=== PATIENT | female | born 1935 | race African-American/Black ===

== ENCOUNTER 2017-03-04 15:19 | Emergency (ER) | payer OTHER ==
[~2017-03-04] VITALS: Ht 167.6 cm; Wt 136.1 kg
[~2017-03-04 15:19] MED LIST: ACTOS 30 MG TAB30 MG PO; ACTOS 45 MG45 M1 PO; ACTOS 45 MG45 MG PO; ACYCLOVIR 800800 MG PO; ADULT LOW DOSE81 MG PO; AFRIN15 ML NASAL; ALAVERT10 MG PO; ALBUTEROL INHAL17 GM IH; ALTOPREV40 MG PO; ANALGESIC325 MG PO; ANTACID650 MG PO; APAP500; APAP500 PO; ARICEPT 5 MG TAB5 MG PO; ARICEPT10 MG PO; ARTIFICIAL TEA1 EAC1 OPHTHALMIC; ASPIRIN325; ASPIRIN325 PO; AUGMENTIN 875875 M1 PO; AVELOX400 MG PO; AZITHROMYCIN 2250 MG PO; BIOTENE MOIST44.3 ML PO; CALCIUM CARBON260 MG PO; CLARITIN10 MG PO; COLACE 100 MG100 MG; COLACE100 MG PO; COMPAZINE10 M1 PO; COMPAZINE10 MG PO; EMLA CREAM; EMLA CREAM5 GM; EXPECTORAN100 MG/5 M PO; EXPECTORANT200 M1 PO; FANATREX25 MG/1 ML; FENTANYL PA25 MCG/HR TRANSDERM; FEVERALL JR 32325 MG PO; FLOMAX PO; FUROSEMIDE 20 M20 MG PO; GABAPENTIN100 MG PO; GLIPIZIDE XL10 MG PO; GLUCAGEN1 M2 IM; GLUCOSE4 GM PO; GLUCOTROL5 MG PO; GRALISE600 MG PO; GUAIATUSSI100 MG/5 M PO; HUMALOG100 UNIT/1; HYDROCODON-ACE1 EACH; HYDROCODONE-AP1 EAC6 PO; IMDUR 30 MG TAB30 M1 PO; IMDUR 30 MG TAB30 MG PO; ISOSORBIDE; ISOSORBIDE DINI30 MG PO; KEFLEX500 MG PO; KETOROLAC 0.5% E5 ML OPHTHALMIC; LASIX 20 MG TAB20 MG PO; LASIX 40 MG TAB40 M1 GT; LIDOCAINE; LIDOCAINE/PRILOCAINE; LIPITOR10 MG PO; LOPRESSOR25; LOPRESSOR25 PO; LORTAB 5 MG/5001 TA1 PO; METOPROLOL 50 M50 M1 PO; MIDODRINE HCL 55 M1 PO; MIDODRINE HCL10 MG PO; MIDODRINE HCL2.5 M1 PO; MIRALAX17 GM PO; MIRALAX255 GM PO; MUCINEX TA600 MG/TA2 PO; NAPROSYN375 MG PO; NAPROSYN500 MG PO; NEPHROCAPS SOFT1 CAP; NEPHROCAPS SOFT1 CAP PO; NEPHROCAPS SOFTG1 MG PO; NEPRO CARB STE237 ML PO; NEURO-K50 MG PO; NEURONTIN 300300 M1; NEURONTIN 300300 M1 PO; NORCO 5-325 TA1 EACH PO; NOVOLIN R100 UNIT/3 IJ; NOVOLOG100 UNIT/1; OCEAN45 ML NS; OMEPRAZOLE20 M2 PO; ONDANSETRON HCL4 M2 PO; ONDANSETRON ODT4 MG PO; OXYCODONE HCL E10 MG PO; PHENERGAN-CODE120 ML PO; PHOSLO667 MG; PHOSLO667 MG PO; PLAVIX 75 MG TA75 MG PO; PRED FORTE 1% EY5 M1 OPHTHALMIC; PREDNISONE; PREDNISONE 20 M20 M1; PREDNISONE 20 M20 M1 PO; PREDNISONE PO; PREMARIN0.625 MG PO; PRILOCAINE; PRILOSEC 20 MG20 MG PO; PROTONIX40 M2 PO; RENAGEL PO; RENAL CAPS PO; RENAL CAPS SOFTG1 MG PO; RENAL SOFTGEL1 MG PO; RENO CAPS; RENVELA800 MG PO; ROBITUSSIN DM118 ML PO; ROBITUSSIN100 MG/5 M PO; ROXICODONE5 M2 PO; ROXICODONE5 MG PO; SALINE NASAL SP30 ML NASAL; SENSIPAR 30 MG30 MG PO; SSD CREAM 1% 5050 GM TOP; TOPROL XL25 MG PO; TRAMADOL 50 MG50 MG PO; TUMS E.S.750 MG PO; TYELNOL; TYLENOL325 MG PO; ULTRAM 50MG TAB50 MG PO; VICODIN 5-5001 EACH PO; VITAMIN A & D OI2 OZ TOP; VITAMIN B-1100 M1 PO; VITAMIN B-1100 MG PO; VITAMIN B-250 MG PO; VITAMIN B-625 MG; VITAMIN B-625 MG PO; VITAMINC500 PO; ZINC SULFATE 2220 M1 PO; ZOCOR 20 MG TAB20 M1 PO; ZOFRAN4 MG PO; ZYRTEC10 M2 PO; [UNRECOGNIZED DRUG - OTHER]; [UNRECOGNIZED DRUG - OTHER]; [UNRECOGNIZED DRUG - OTHER]; [UNRECOGNIZED DRUG - OTHER] PO
[2017-03-04 16:20] LABS: HEMATOCRIT 29.5 % (37.0-47.0); HEMOGLOBIN 9.7 gm/dL (12.0-15.0); MCH 27.1 pg (26.0-34.0); MCHC 32.7 g/dL (28.0-37.0); MCV 82.7 fL (80.0-100.0); RBC 3.57 mil/uL (4.20-5.00); WBC 11.5 thou/uL (4.0-11.0)
[2017-03-04 16:28] LABS: CALCIUM 7.7 mg/dL (8.5-10.1); CREATININE 2.8 mg/dL (0.6-1.0); POTASSIUM 3.2 mmol/L (3.5-5.1)
[2017-03-04 16:34] LABS: ALBUMIN 2.5 g/dL (3.4-5.0); TOTAL BILIRUBIN 0.4 mg/dL (<0.1-1.0); TOTAL PROTEIN 7.5 g/dL (6.4-8.2)
[2017-03-04] MEDS ORDERED: CALCIUM ACETAT667 M2 PO (17:44)
[2017-03-04] MEDS ORDERED: DAYTIME COU5 MG/5 ML PO (17:46)
[2017-03-04] MEDS ORDERED: PEPCID20 MG PO (17:47)
[2017-03-04] MEDS ORDERED: ARICEPT10 M1 PO (17:47)
[2017-03-04] MEDS ORDERED: BISACODYL SUPP10 MG RECTAL (17:47)
[2017-03-04] MEDS ORDERED: DURAGESIC25 MCG/HR TRANSDERM (17:48)
[2017-03-04] MEDS ORDERED: NEURONTIN 300300 M1 PO (17:48)
[2017-03-04] MEDS ORDERED: HYDROCODONE-AP1 EAC6 PO (17:49)
[2017-03-04] MEDS ORDERED: JUVEN PACKET1 EAC1 PO (17:49)
[2017-03-04] MEDS ORDERED: KETOROLAC 0.5% E5 ML OPHTHALMIC (17:50)
[2017-03-04] MEDS ORDERED: MIDODRINE HCL 55 M1 PO (17:50)
[2017-03-04] MEDS ORDERED: MILK OF MA2400 MG/10 PO (17:51)
[2017-03-04] MEDS ORDERED: PIOGLITAZONE15 MG (17:52)
[2017-03-04] MEDS ORDERED: NEPHROCAPS SOFT1 CAP PO (17:52)
[2017-03-04] MEDS ORDERED: PRED MILD5 ML OPHTHALMIC (17:53)
[2017-03-04] MEDS ORDERED: PROCRIT10000 UNIT IM (17:55)
[2017-03-04] MEDS ORDERED: PYRIDOXINE HCL50 MG PO (17:55)
[2017-03-04] MEDS ORDERED: TRAMADOL 50 MG50 MG PO ×2 (17:56→17:57)
[2017-03-04] MEDS ORDERED: SENEXON-S TABL1 EACH PO (17:56)
[2017-03-04] MEDS ORDERED: TYLENOL325 MG PO (17:58)
[2017-03-04] MEDS ORDERED: VITAMINC500 PO (17:58)
[2017-03-04] MEDS ORDERED: ZINC SULFATE 2220 M1 PO (17:59)
[2017-03-04 20:00] VITALS: BP 116/68
== END 2017-03-04 20:00 | disposition short-term general hospital (02) ==
LOC: ER 15:19
PROVIDERS: Physician Assistant
DX: T82.590A Other mechanical complication of surgically created arteriovenous fistula, initial encounter (principal); I12.0 Hypertensive chronic kidney disease with stage 5 chronic kidney disease or end stage renal disease; N18.6 End stage renal disease; Z99.2 Dependence on renal dialysis; E78.5 Hyperlipidemia, unspecified; R41.0 Disorientation, unspecified; Z90.49 Acquired absence of other specified parts of digestive tract; Z90.710 Acquired absence of both cervix and uterus; Z98.890 Other specified postprocedural states; Z88.0 Allergy status to penicillin; Z88.1 Allergy status to other antibiotic agents; Z88.8 Allergy status to other drugs, medicaments and biological substances